=== PATIENT | female | born 1955 | race Caucasian/White ===

== ENCOUNTER → 2023-05-18 15:45 | Outpatient (REF) | payer MEDICARE, OTHER, SELFPAY | LOC: DHCBC HW 15:45 | PROVIDERS: ATTENDING PHYSICIAN Internal Medicine Cardiovascular Disease; FAMILY PHYSICIAN Family Medicine | DX: R00.2 Palpitations (principal); R06.09 Other forms of dyspnea; Z82.49 Family history of ischemic heart disease and other diseases of the circulatory system | CPT/HCPCS: 93306 ==

== ENCOUNTER → 2023-05-25 07:52 | Outpatient (REF) | payer MEDICARE, OTHER, SELFPAY | LOC: DHCBC/DCA 07:52 | PROVIDERS: ATTENDING PHYSICIAN Internal Medicine Cardiovascular Disease; FAMILY PHYSICIAN Family Medicine | DX: R00.2 Palpitations (principal); R06.09 Other forms of dyspnea; Z82.49 Family history of ischemic heart disease and other diseases of the circulatory system | CPT/HCPCS: 78452; 93017; A9500 ==

== ENCOUNTER 2023-05-31 09:23 | Day surgery (SDC) | payer MEDICARE, OTHER, SELFPAY ==
[2023-05-31] VITALS (9 sets, daily range): BP systolic 87–161; BP diastolic 52–75; BMI 26.4
[2023-05-31] MEDS: NSS 178 ML IV (10:16)
--- NOTE | 2023-05-31 12:38 | ITS.CL.CATH ---
Sticker On - Catheterization
Cardiac Catheterization
Procedure Report:
CARDIAC CATHETERIZATION REPORT
Date of Procedure: 05/31/2023
Referring: Evan Cordon MD
Indication: Exertional dyspnea with abnormal stress test
HEMODYNAMIC DATA
AO: 139/76
LV: 139/15
LEFT VENTRICULOGRAPHY: Normal left-ventricular wall motion with EF 69%
CORONARY ANGIOGRAPHY
Dominance: Right
Left Main: Normal
LAD: Normal
Circumflex: Normal
RCA: Normal dominant vessel
Closure Device: None-the procedure was performed via the right femoral artery as we were unable to access the tiny right radial artery. Manual compression was used for hemostasis as we used a 5 [place] system
Radiation (mGy): 56.1
DAP (cm2.Gy): 4.2
Fluoroscopy time: 1.4 minutes
CONCLUSIONS
1: Normal left ventricular function with EF 69%
2: Normal coronary arteries
Copy to: Evan Cordon MD, Lucio Johnson MD
Filiberto Adair MD, [facility], [facility]
[2023-05-31] MEDS: NSS 1000 IV (13:33)
== END 2023-05-31 15:39 | disposition home or self-care (01) ==
LOC: CATH 09:23
PROVIDERS: ATTENDING PHYSICIAN Internal Medicine Cardiovascular Disease; FAMILY PHYSICIAN Family Medicine; OTHER PHYSICIAN Family Medicine
DX: R94.39 Abnormal result of other cardiovascular function study (principal); R06.09 Other forms of dyspnea; Z82.49 Family history of ischemic heart disease and other diseases of the circulatory system
CPT/HCPCS: 93458; C1894; Q9967